=== PATIENT | male | born 1975 ===

== ENCOUNTER 2020-03-30 08:28 | Emergency (ER) | payer SELFPAY | END 2020-03-30 08:30 | LOC: ED 08:28 | DX: Z00.8 Encounter for other general examination (principal); Z53.21 Procedure and treatment not carried out due to patient leaving prior to being seen by health care provider ==

== ENCOUNTER 2020-03-30 13:07 | Emergency (ER) | payer SELFPAY ==
[2020-03-30] MEDS ORDERED: ONDANSETRON 4 MG/2 ML INJ IV ONE (13:37)
[2020-03-30] MEDS ORDERED: MORPHINE 4 MG/1 ML INJ IV ONE (13:37)
[2020-03-30] MEDS ORDERED: SODIUM CHLORIDE 0.9% 1000 ML 1,000 ML IV ONE (13:37)
[2020-03-30] MEDS ORDERED: methylPREDNISolone Sod Succinate 125 MG/2 ML INJ IV ONE (14:20)
[2020-03-30 14:43] LABS: Basophils % (Auto) 0.2 % (0.0-1.8); Hematocrit 50.1 % (35.5-45.6); Hemoglobin 16.2 gm/dl (11.8-15.2); Lymphocytes # (Auto) 1.3 K/mm3 (1.2-5.4); Lymphocytes % (Auto) 8.3 % (13.4-35.0); Mean Corpuscular HGB Conc 32 % (32-34); Mean Corpuscular Volume 81 fl (84-94); Monocytes # (Auto) 0.5 K/mm3 (0.0-0.8); Monocytes % (Auto) 3.2 % (0.0-7.3); Platelet Count 304 K/mm3 (140-440); Red Blood Count 6.17 M/mm3 (3.65-5.03); Red Cell Distribution Width 14.4 % (13.2-15.2)
--- NOTE | 2020-03-30 14:54 | Emergency Department Report ---
ED Abdominal Pain HPI - General Chief Complaint: Abdominal Pain Stated Complaint: VOMITING Time Seen by Provider: 03/30/20 13:40 Source: patient Mode of arrival: Ambulatory Limitations: No Limitations - History of Present Illness Initial Comments: 44-year-old male with history of Crohn's disease presents to ED with complaint of abdominal pain. Patient reports generalized abdominal pain for the last 2 days. Patient has colostomy bag, placed 20 years ago. He reports associated nausea and vomiting. He reports small amount of blood in his stool. He denies any fever. MD Complaint: abdominal pain -: days(s) (2) Location: diffuse Radiation: none Migration to: no migration Severity scale (0 -10): 7 Quality: aching Consistency: constant Improves With: nothing Worsens With: nothing Associated Symptoms: nausea, vomiting. denies: fever - Related Data Previous Rx's Medication Instructions Recorded Last Taken Type Dicyclomine [Bentyl] 20 mg PO QID PRN #20 tablet 03/30/20 Unknown Rx Ondansetron [Zofran Odt] 4 mg PO Q8HR PRN #20 tab.rapdis 03/30/20 Unknown Rx predniSONE [Deltasone] 50 mg PO QDAY 7 Days #7 tab 03/30/20 Unknown Rx Allergies Allergy/AdvReac Type Severity Reaction Status Date / Time No Known Allergies Allergy Unverified 10/01/14 12:38 ED Review of Systems ROS: Stated complaint: VOMITING Other details as noted in HPI Comment: All other systems reviewed and negative Constitutional: denies: chills, fever Gastrointestinal: abdominal pain, nausea, vomiting ED Past Medical Hx - Past Medical History Previous Medical History?: Yes Additional medical history: chron's - Surgical History Past Surgical History?: Yes Hx Appendectomy: Yes Additional Surgical History: colostomy - Medications Home Medications: Home Medications Medication Instructions Recorded Confirmed Last Taken Type Dicyclomine [Bentyl] 20 mg PO QID PRN #20 tablet 03/30/20 Unknown Rx Ondansetron [Zofran Odt] 4 mg PO Q8HR PRN #20 tab.rapdis 03/30/20 Unknown Rx predniSONE [Deltasone] 50 mg PO QDAY 7 Days #7 tab 03/30/20 Unknown Rx ED Physical Exam - General Limitations: No Limitations General appearance: alert, other (Appears uncomfortable) - Head Head exam: Present: atraumatic, normocephalic - Eye Eye exam: Present: normal appearance, EOMI - ENT ENT exam: Present: mucous membranes moist - Neck Neck exam: Present: normal inspection - Respiratory Respiratory exam: Present: normal lung sounds bilaterally. Absent: respiratory distress - Cardiovascular Cardiovascular Exam: Present: regular rate, normal rhythm - GI/Abdominal GI/Abdominal exam: Present: soft, tenderness (Mild diffuse), other (Colostomy bag in place left lower quadrant). Absent: distended - Extremities Exam Extremities exam: Present: normal inspection - Neurological Exam Neurological exam: Present: alert, oriented X3 - Psychiatric Psychiatric exam: Present: normal affect, normal mood - Skin Skin exam: Present: warm, dry, intact, normal color ED Course Vital Signs 03/30/20 03/30/20 03/30/20 13:40 16:07 16:16 Temperature 97.8 F Pulse Rate 90 79 Respiratory 20 18 Rate Blood Pressure 152/89 132/68 O2 Sat by Pulse 100 98 95 Oximetry 03/30/20 03/30/20 03/30/20 16:30 16:46 17:00 Temperature Pulse Rate 79 74 78 Respiratory 22 22 22 Rate Blood Pressure 132/68 132/68 132/68 O2 Sat by Pulse 96 97 94 Oximetry 03/30/20 17:16 Temperature Pulse Rate 77 Respiratory 15 Rate Blood Pressure 107/50 O2 Sat by Pulse 95 Oximetry - Reevaluation(s) Reevaluation #1: 03/30/20 17:09 Pt tolerating PO. States he is feeling much better. ED Medical Decision Making - Lab Data Result diagrams: 03/30/20 14:26 03/30/20 14:26 - Radiology Data Radiology results: report reviewed, image reviewed - Medical Decision Making 44-year-old male with history of Crohn's disease presents to ED with abdominal pain and vomiting. CT shows intestinal edema. White count of 16. Patient is afebrile. Following IV fluids, antiemetics, pain medication, and Solu-Medrol, p atient is feeling much better at this time. He is able to tolerate p.o. Patient feels comfortable with discharge home. Will discharge with prescriptions. Advised outpatient follow-up with GI. Return precautions given. - Differential Diagnosis Crohn's flare, bowel obstruction, appendicitis, pancreatitis Critical care attestation.: If time is entered above; I have spent that time in minutes in the direct care of this critically ill patient, excluding procedure time. ED Disposition Clinical Impression: Crohn's colitis Disposition: DC-01 TO HOME OR SELFCARE Is pt being admited?: No Condition: Stable Instructions: Colitis Prescriptions: Dicyclomine [Bentyl] 20 mg PO QID PRN #20 tablet PRN Reason: abdominal pain predniSONE [Deltasone] 50 mg PO QDAY 7 Days #7 tab Ondansetron [Zofran Odt] 4 mg PO Q8HR PRN #20 tab.rapdis PRN Reason: Vomiting Referrals: PRIMARY CARE, [Primary Care Provider] - 3-5 Days [facility] [Provider Group] - 3-5 Days Time of Disposition: 17:17
[2020-03-30 14:57] LABS: Alanine Aminotransferase 19 units/L (7-56); Albumin 4.6 g/dL (3.9-5); BUN/Creatinine Ratio 9; Blood Urea Nitrogen 8 mg/dL (9-20); Calcium 9.6 mg/dL (8.4-10.2); Hemolysis Index 11
[2020-03-30 15:06] LABS: Bilirubin,Direct < 0.2 mg/dL (0-0.2)
[2020-03-30] MEDS ORDERED: diphenhydrAMINE 50 MG/ML VIAL IV ONE (15:24)
[2020-03-30] MEDS ORDERED: METOCLOPRAMIDE 10 MG/2 ML INJ IV ONE (15:24)
--- NOTE | 2020-03-30 16:04 | Cat Scan Report ---
CT abdomen pelvis w con INDICATION: Severe abdominal pain, hx of Crohn's, blood stool. TECHNIQUE: All CT scans at this location are performed using CT dose reduction for ALARA by means of automated e xposure control. COMPARISON: None available. FINDINGS: Lung bases are clear of acute disease. Liver, gallbladder, spleen and pancreas are negative. Right ki dney and both adrenals are negative. A nonobstructing 1.2 cm calculus is demonstrated in the midpole of the left kidney. No hydronephrosis or ureteral calculus. Pelvis Postop change in the right abdomen suggests right hemicolectomy with ileocolic anastomosis, but there is a left lower quadrant ostomy, so the exact surgical procedure is not known. The transverse, desce nding and sigmoid colon and the rectum appear diffusely edematous. No free fluid. No acute skeletal lesions. IMPRESSION: 1. Postop change involving the colon and small bowel, with diffusely edematous rectum, as well as the transverse, descending and sigmoid colon, suggesting active inflammatory bowel disease. Signer Name: Daniel Reynolds MD Signed: 03/30/2020 3:59 PM Workstation Name: [id number]
[2020-03-30 17:36] VITALS: BP 107/50
== END 2020-03-30 17:35 | disposition home or self-care (01) ==
LOC: ED 13:07
DX: K50.10 Crohn's disease of large intestine without complications (principal); Z79.899 Other long term (current) drug therapy; Z90.49 Acquired absence of other specified parts of digestive tract
CPT/HCPCS: 36415; 74177; 80048; 80076; 83690; 85025; 96361; 96374; 96375; 99284; J1200; J2270; J2405; J2765; J2930; J7030; Q9967

== ENCOUNTER 2020-04-01 09:10 | Emergency (ER) | payer SELFPAY ==
[2020-04-01 09:18] VITALS: BP 157/84
[2020-04-01] MEDS ORDERED: ONDANSETRON 4 MG ODT TAB ONE (09:20)
[2020-04-01] MEDS ORDERED: ONDANSETRON 4 MG ODT TAB PO ONE (09:22)
--- NOTE | 2020-04-01 09:47 | Emergency Department Report ---
ED General Adult HPI - General Chief complaint: Abdominal Pain Stated complaint: ABD PAIN/DISCHARGED YESTERDAY Time Seen by Provider: 04/01/20 09:41 Source: patient Mode of arrival: Ambulatory Limitations: No Limitations - History of Present Illness Initial comments: 44-year-old F [place] male with a known history of Crohn's disease presented to the emergency department complaining of continued nausea and abdominal discomfort but states he has not yet been able to get the medication prescribed to him from his recent hospital visit a day ago. States it plan requiring medication tomorrow but his had some nausea to develop and seeks to obtain some treatment for nausea here in the emergency department. States he does not need anything for pain or his appetite simply needs antinausea treatment. Reports no fever, chills, sweats reports no chest pain no palpitations. Does have off and on diarrhea and and occasional pain episodes but has not progressed since his recent emergency room visit on the - Related Data Previous Rx's Medication Instructions Recorded Last Taken Type Dicyclomine [Bentyl] 20 mg PO QID PRN #20 tablet 03/30/20 Unknown Rx Ondansetron [Zofran Odt] 4 mg PO Q8HR PRN #20 tab.rapdis 03/30/20 Unknown Rx predniSONE [Deltasone] 50 mg PO QDAY 7 Days #7 tab 03/30/20 Unknown Rx Allergies Allergy/AdvReac Type Severity Reaction Status Date / Time No Known Allergies Allergy Unverified 10/01/14 12:38 ED Review of Systems ROS: Stated complaint: ABD PAIN/DISCHARGED YESTERDAY Other details as noted in HPI Comment: All other systems reviewed and negative ED Past Medical Hx - Past Medical History Additional medical history: chron's - Surgical History Hx Appendectomy: Yes Additional Surgical History: colostomy - Social History Smoking Status: Never Smoker - Medications Home Medications: Home Medications Medication Instructions Recorded Confirmed Last Taken Type Dicyclomine [Bentyl] 20 mg PO QID PRN #20 tablet 03/30/20 Unknown Rx Ondansetron [Zofran Odt] 4 mg PO Q8HR PRN #20 tab.rapdis 03/30/20 Unknown Rx predniSONE [Deltasone] 50 mg PO QDAY 7 Days #7 tab 03/30/20 Unknown Rx ED Physical Exam - General Limitations: No Limitations General appearance: alert, in no apparent distress - Head Head exam: Present: atraumatic, normocephalic - Eye Eye exam: Present: normal appearance - ENT ENT exam: Present: mucous membranes moist - Neck Neck exam: Present: normal inspection - Respiratory Respiratory exam: Present: normal lung sounds bilaterally. Absent: respiratory distress - Cardiovascular Cardiovascular Exam: Present: regular rate, normal rhythm. Absent: systolic murmur, diastolic murmur, rubs, gallop - GI/Abdominal GI/Abdominal exam: Present: soft, normal bowel sounds - Rectal Rectal exam: Present: deferred - Extremities Exam Extremities exam: Present: normal inspection - Back Exam Back exam: Present: normal inspection - Neurological Exam Neurological exam: Present: alert, oriented X3 - Psychiatric Psychiatric exam: Present: normal affect, normal mood - Skin Skin exam: Present: warm, dry, intact, normal color. Absent: rash ED Course Vital Signs 04/01/20 09:12 Temperature 97.6 F Pulse Rate 86 Respiratory 20 Rate Blood Pressure 157/84 ED Medical Decision Making - Medical Decision Making For his Crohn's disease the patient was prescribed his medication initially which is due to to follow-up tomorrow at the pharmacy to pick them up. Was treated for his nausea with Zofran 8 x 8 8 8 mg and then have requested for his ride to be called for pickup which was done. His vital signs were stable as. Mr. Araya as well. He is encouraged to be compliant with the current medication and and and and diet regimen and return to the emergency department should he feel his condition is worsening Critical care attestation.: If time is entered above; I have spent that time in minutes in the direct care of this critically ill patient, excluding procedure time. ED Disposition Clinical Impression: Chronic nausea, Chronic abdominal pain Disposition: DC-01 TO HOME OR SELFCARE Is pt being admited?: No Does the pt Need Aspirin: No Condition: Stable Instructions: Chronic Pain, Adult, Nausea, Adult Additional Instructions: Please be sure to fill your prescriptions that were provided to you on your last emergency room visit to help to eradicate the symptoms associated with the your Crohn's flareup Referrals: [facility] [Provider Group] - 2-3 Days
== END 2020-04-01 10:01 | disposition home or self-care (01) ==
LOC: ED 09:10
DX: R11.0 Nausea (principal); R10.9 Unspecified abdominal pain; G89.29 Other chronic pain; Z79.899 Other long term (current) drug therapy
CPT/HCPCS: 99283; Q0162